=== PATIENT | female | born 1985 | race Caucasian/White ===

== ENCOUNTER 2017-02-19 20:16 | Emergency (ER) | payer OTHER ==
[2017-02-19 20:31] VITALS: RESP 20; O2SAT 98
[2017-02-19 21:04] LABS: BASOPHILS % (AUTO) 1 % (0-3); EOSINOPHILS % (AUTO) 0 % (0-9); HEMATOCRIT 38 % (35-47); MEAN CORPUSCULAR VOLUME 84 fL (81-99); MONOCYTES % (AUTO) 7.5 % (0-12); NEUTROPHILS % (AUTO) 71.4 % (37-80)
[2017-02-19] MEDS ORDERED: IBUPROFEN 600 MG TAB PO ONE (22:05)
[2017-02-19] MEDS ORDERED: ONDANSETRON 4 MG ODT BU ONE (22:06)
[2017-02-19] MEDS ORDERED: ONDANSETRON 4 MG ODT ONE (22:08)
[2017-02-19] MEDS ORDERED: IBUPROFEN 600 MG TAB ONE (22:08)
[2017-02-19 22:28] LABS: CALCIUM 8.5 mg/dl (8.5-10.1); POTASSIUM 3.6 mMol/L (3.5-5.1)
[2017-02-19] MEDS: LACTATED RINGERS 1,000 ML IV SCH ×2 (22:40→23:31)
[2017-02-20 00:35] VITALS: BP 115/67; PULSE 96; TEMP 98.6
== END 2017-02-20 00:15 | disposition home or self-care (01) | DRG 153 ==
LOC: ED 20:16
DX: J06.9 Acute upper respiratory infection, unspecified (principal); R11.2 Nausea with vomiting, unspecified
CPT/HCPCS: 36415; 80048; 85025; 87430; 87804; 96365; 99283